=== PATIENT | male | born 1985 | race Two or more races ===

== ENCOUNTER → 2024-09-19 | Outpatient (CLI) | payer OTHER ==
[2024-09-19 08:55] LABS: Chloride 108 mmol/L (98-107); Potassium 4.3 mmol/L (3.5-5.1); Sodium 141 mmol/L (136-145)
[2024-09-19 08:56] LABS: Anion Gap 4 (5-15); Carbon Dioxide 29 mmol/L (20-31)
[2024-09-19 08:57] LABS: Calcium 10.2 mg/dL (8.7-10.4)
[2024-09-19 09:02] LABS: BUN/Creatinine Ratio 10.9 (10.0-20.0); Blood Urea Nitrogen 11 mg/dL (9-23); Glucose 84 mg/dL (74-106)
--- NOTE | 2024-09-19 09:44 | DVH ---
CT FACE HISTORY: RIGHT FACIAL MASS TECHNIQUE: Nonenhanced axial images through the facial bones with coronal and sagittal MPR. Radiation optimization: All CT scans at this facility use at least one of these dose optimization deshawn hniques: automated exposure control mA and/or kV adjustment per patient size (includes targeted exam s where dose is matched to clinical indication) or iterative reconstruction. Radiation Dose Information: CT Dose: CTDI volume is 56.75 mGy. Dose-length product is 1250.03 mGy*cm Comparison: None. FINDINGS: There is a nonspecific 1.4 x 1.3 cm subcutaneous cystic structure in the right facial soft tissues. There are no significant surrounding inflammatory changes or overlying skin thickening. The remaining facial soft tissues appear within normal limits. The visualized intraorbital intracranial contents appear unremarkable. The maxillofacial osseous structures appear intact without evidence of an acute fracture or dislocati on. The alignment is anatomic. There is partial opacification of the left ethmoid air cells and left maxillary sinus. IMPRESSION: 1. Nonspecific 1.4 x 1.3 cm subcutaneous cystic structure in the right facial soft tissues. Are no si gnificant surrounding inflammatory changes or overlying skin thickening. May represent a sebaceous cy st. Clinical correlation is recommended. 2. Partial opacification of the left ethmoid and maxillary sinuses. HS:Y
== END | disposition home or self-care (01) ==
LOC: EEVIPCON 07:45 → CT 07:45
DX: J32.0 Chronic maxillary sinusitis (principal); J32.2 Chronic ethmoidal sinusitis; R22.0 Localized swelling, mass and lump, head
CPT/HCPCS: 36415; 70487; 80048; Q9967